=== PATIENT | male | born 1985 | race Caucasian/White ===

== ENCOUNTER 2018-02-28 03:34 | Inpatient (IN) | payer BC ==
[2018-02-28] VITALS (7 sets, daily range): BP systolic 123–144; BP diastolic 75–98
[~2018-02-28] VITALS: Ht 182.9 cm; Wt 88.5 kg
[2018-02-28 04:11] LABS: ABSOLUTE EOSINOPHILS 0.1 thou/uL (0.0-0.7); ABSOLUTE LYMPHOCYTES 1.8 thou/uL (0.8-5.3); ABSOLUTE MONOCYTES 0.6 thou/uL (0.0-1.2); ABSOLUTE NEUTROPHILS 5.5 thou/uL (1.6-8.1); BASOPHILS 0.4 %; EOSINOPHILS 1.1 %; HEMATOCRIT 44.2 % (42.0-52.0); HEMOGLOBIN 15.1 gm/dL (14.0-18.0); LYMPHOCYTES 22.5 %; MCH 32.1 pg (26.0-34.0); MCHC 34.3 g/dL (28.0-37.0); MCV 93.5 fL (80.0-100.0); MONOCYTES 7.2 %; MPV 7.8 fl. (7.2-11.1); NUCLEATED RBCS 0 /100WBC; PLATELET COUNT* 287 thou/uL (150-400); POLYS 68.8 %; RBC 4.72 mil/uL (4.50-6.00); RDW-CV 12.8 % (10.5-14.5)
[2018-02-28 04:18] LABS: CREATININE 0.9 mg/dL (0.6-1.3)
[2018-02-28 04:22] LABS: POTASSIUM 2.9 mmol/L (3.5-5.1)
[2018-02-28 04:23] LABS: ALBUMIN 3.7 g/dL (3.4-5.0); TOTAL BILIRUBIN 0.6 mg/dL (<0.1-1.0); TOTAL PROTEIN 6.6 g/dL (6.4-8.2)
[2018-02-28 05:30] LABS: URINE BILIRUBIN NEGATIVE (Negative); URINE BLOOD NEGATIVE (Negative); URINE CLARITY CLEAR; URINE COLOR YELLOW; URINE GLUCOSE-RANDOM NEGATIVE (Negative); URINE KETONES 1+ (Negative); URINE LEUKOCYTES-REFLEX NEGATIVE (Negative); URINE NITRITE-REFLEX NEGATIVE (Negative); URINE PROTEIN TRACE (Negative); URINE UROBILINOGEN 0.2 E.U./dl (0.2-1.0)
[2018-02-28] MEDS ORDERED: NORCO 7.5-3251 EACH PO (06:52)
[2018-02-28] MEDS ORDERED: ZOFRAN ODT4 MG PO (06:52)
[2018-02-28] MEDS ORDERED: CARAFATE 1 GM TA1 GM PO (06:57)
[2018-02-28] MEDS ORDERED: HYDROCODONE-AP1 EAC6 PO (16:33)
[2018-03-01] VITALS: BP 101/66
[2018-03-01 08:00] VITALS: BP 132/79
[2018-03-01 09:41] VITALS: BP 123/79
[2018-03-01 10:34] VITALS: BP 123/79
--- NOTE | 2018-03-01 22:04 | OP ---
[address] [address] OPERATIVE REPORT Name: RONALDO ROJAS Room: [address] IN [place].#: [id number] Admission: 02/28/18 Attend Phys: Arlyn Joe DO Discharge: 03/01/18 Date of : 81 Report #: [id number] THIS REPORT FOR: //name// CC: Arlyn Zacariasley DATE OF SERVICE: 02/28/2018 PREOPERATIVE DIAGNOSIS: Acute cholecystitis. POSTOPERATIVE DIAGNOSIS: Acute cholecystitis. SURGEON: Arlyn Joe DO PROCEDURE: Laparoscopic cholecystectomy. ANESTHESIA: General endotracheal. SPECIMENS: Gallbladder and contents. ESTIMATED BLOOD LOSS: 25 mL. COMPLICATIONS: None. INDICATION FOR PROCEDURE: The patient is a 32-year-old gentleman who presented to the Emergency Department with acute onset of epigastric pain. CT abdomen and pelvis as well as ultrasound demonstrated acute cholecystitis. The patient was explained the procedure including risks, benefits and alternatives. All questions were answered to the patient's satisfaction. Informed consent was obtained. DESCRIPTION OF PROCEDURE: After the patient was brought back to the operating room and placed in supine position, general anesthesia was induced, SCDs were placed on bilateral lower extremities and prophylactic antibiotics were administered. Next, after the abdomen was prepped and draped in the usual sterile fashion and a timeout was performed, the abdomen was entered via an infraumbilical incision in the site of the previous scar. Dissection was carried down to the umbilical stalk, which was grasped and retracted anteriorly. The linea alba was incised vertically and a Ambreen trocar was placed. The abdomen was insufflated to 15 mm of CO2. Next, a 5 mm 30-degree scope was inserted into the abdomen and three 5 mm trocars were placed in the subxiphoid and right subcostal margins. Next, there was noted to be dense omental adhesions to the umbilical trocar site and therefore the camera was placed in the right upper quadrant mid port and these adhesions were taken down with the umbilical trocar site sharply using EndoShears. Next, the gallbladder was then grasped and retracted over the dome of the liver[place] [id number] OPERATIVE REPORT Name: RONALDO ROJAS Room: [address] IN M.R.#: [id number] Admission: 02/28/18 Attend Phys: Arlyn Joe DO Discharge: 03/01/18 Date of : 81 Report #: [id number] significant inflammation and edema as well as omental adhesions to the body and infundibulum of the gallbladder. The infundibulum was then grasped and retracted anterior and laterally with meticulous dissection using suction clinical practice consultant as well as the [place] dissectors. The cystic duct and cystic artery were circumferentially dissected free until the critical view of safety was obtained. The cystic artery was doubly clipped proximally and singly clipped distally and transected. The cystic duct was transected in a similar fashion. Next, the gallbladder was then dissected free from the cystic plate using hook Bovie cautery. There was some iatrogenic spillage of gallbladder and small amount of sludge. Once the gallbladder was freed from the hepatic bed, the gallbladder was then placed in an EndoCatch bag and brought out through the umbilical trocar site. The gallbladder fossa was then suctioned clear and then irrigated with a liter of saline until the effluent was clear. The cystic plate and cystic artery, cystic duct clips were identified noting no further bleeding and no bile leakage. At this time, the 5 mm trocars were removed under direct visualization noting excellent hemostasis at the anterior abdominal wall. The umbilical trocar was then removed. The umbilical fascia was then closed with an 0 Vicryl [id number] stitch. Local anesthetic was infiltrated at all surgical sites. The skin was then closed with 4-0 Monocryl in a subcuticular manner and skin glue was applied for sterile dressing. All sponge and needle count was reported as correct at the end of the case. The patient tolerated the procedure well without any complications. <ELECTRONICALLY SIGNED> By: Arlyn Joe DO 03/01/18 [id number] 1702Cteresa Joe DO /nt
--- NOTE | 2018-03-03 11:08 | PATH ---
[address] [address] PATHOLOGY RPT PROCEDURE Name: NAVEEN ROJAS Room: [address] IN M.R.#: [id number] Admission: 02/28/18 Date of : 81 Discharge: 03/01/18 Report #: [id number] Path Case #: [id number] [facility] Accession Number: [id number] . 01 Material submitted: . GALLBLADDER . 01 Clinician provided ICD-10: K80.10 . 01 Clinical history: . Cholelithiasis, cholecystitis . 02 Diagnosis: Gallbladder: - Chronic cholecystitis and cholelithiasis. (RAQUEL/db; 03/02/18) LBQ/03/02/2018 . 02 Electronically signed: . Farrukh Allred MD, Pathologist NPI- [id number] . 01 Gross description: . The specimen is received in formalin, labeled "Naveen Rojas, gallbladder", is an intact, distended gallbladder measuring 9.7 x 2.4 x 2.0 cm with a glistening, green-purple serosa. The lumen is filled with yellow-green viscous bile and an oval yellow-green irregularly surfaced calculus measuring 2.2 x 1.5 x 1.2 cm. The mucosa is yellow-green partially trabeculated and a wall that measures up to 0.1 cm thick. No discrete masses are identified. Merchant Patroller tissue is submitted in A1. (SWS; 03/01/2018) SHS/SHS . 02 Pathologist provided ICD-10: K80.10 . 02 CPT . 129463 Specimen Comment: A courtesy copy of this report has been sent to Specimen Comment: [phone], , . Specimen Comment: Report sent to ,DR DUBOIS / DR STOVER Performed at: [address] [id number] MD Jet Gonzalez MD Phone: [phone] Performed at: 02 [place] [address] PATHOLOGY RPT PROCEDURE Name: NAVEEN ROJAS Room: [address] IN M.R.#: [id number] Admission: 02/28/18 Date of : 81 Discharge: 03/01/18 Report #: [id number] Path Case #: [id number] [address], [place] [id number] MD Farrukh Allred MD Phone: [phone]
== END 2018-03-01 10:15 | disposition home or self-care (01) | DRG 419 ==
LOC: M.ERS 03:34 → M.TBA-ER 09:05 → M.ORTHSURG 12:30
PROVIDERS: Emergency Medicine; ADMIT Surgery
PROC: 0DNU4ZZ Release Omentum, Percutaneous Endoscopic Approach (ICD-10-PCS; principal; 2018-02-28)
PROC: 0FT44ZZ Resection of Gallbladder, Percutaneous Endoscopic Approach (ICD-10-PCS; principal; 2018-02-28)
DX: K81.0 Acute cholecystitis (principal); Z88.8 Allergy status to other drugs, medicaments and biological substances; Z88.2 Allergy status to sulfonamides; Z90.49 Acquired absence of other specified parts of digestive tract